=== PATIENT | female | born 1975 | race Caucasian/White ===

== ENCOUNTER 2019-07-22 09:12 | Day surgery (SDC) | payer OTHER ==
[2019-07-20 16:54] LABS: Urine Appearance CLEAR; Urine Bilirubin NEGATIVE (NEG); Urine Blood NEGATIVE (NEG); Urine Color YELLOW; Urine Glucose NEGATIVE (NEG); Urine Protein NEGATIVE (NEG); Urine Specific Gravity 1.015 (1.005-1.030); Urine Urobilinogen 0.2 mg/dL (0.2-1.0); Urine pH 5.5 (5.0-7.0)
[2019-07-20 16:59] LABS: Absolute Lymphocytes (CBC) 2.8 K/uL (0.7-4.9); Basophils % 0.7 % (0-1.3); Hematocrit 44.6 % (36.0-45.0); Lymphocytes % 27.8 % (15.3-44.8)
[2019-07-20 17:16] LABS: Urine Microscopic Reflex NO UMIC
[2019-07-22 09:32] LABS: Specific Gravity 1.015 (1.005-1.030)
--- OUTSIDE RECORDS SUMMARY | 2019-07-22 09:32 | XMS REPORT ---
:1975 Author Organization [facility] t Address [address] [place] [address] [address]. [address] [place] [address] Care Team Providers Name Role Phone Unavailable Unavailable Unavailable Problems Condition Condition Condition Status Onset Resolution Last Treatin g Comments Name Details Category Date Date Treatment Clinician Date Primary Primary Problem Active insomnia insomnia Depression Depression Problem Active with with anxiety anxiety Seasonal Seasonal Problem Active allergies allergies Body mass Body mass Problem Active index (BMI) index (BMI) of of 45.0-49.9 45.0-49.9 in adult in adult Acute Acute Problem Active pharyngitis pharyngitis due to due to other other specified specified organisms organisms Other viral Other viral Problem Active agents as agents as the cause the cause of diseases of diseases classified classified elsewhere elsewhere Allergies, Adverse Reactions, Alerts This patient has no known allergies or adverse reactions. Medications Ordered Filled Start Stop Current Ordering Indication Dosage Frequency Signature Comments Components Medication Medication Date Date Medication? Clinician (SIG) Name Name Nasacort Nasacort Yes Susana 1 spray in Allergy Allergy Byers each 24HR 24HR nostril Vitamin D Vitamin D Yes Susana 1 capsule Byers Escitalopra Escitalopra Yes Susana 1 tablet m Oxalate m Oxalate Byers Omeprazole Omeprazole Yes Susana 1 capsule Byers Multi For Multi For Yes Susana as Her Her Byers directed Biotin Biotin Yes Susana 1 tablet Byers Albuterol Albuterol Yes Susana 1 puff as Sulfate Sulfate Byers needed Encounters Start End Encounter Admission Attending Care Care Encounter Date/Time Date/Time Type Type Clinicians Facility Department ID 2019-05-10 2019-05-10 Outpatient Mitchell Medrano 2 [id number] 09:00:00 09:00:00 [facility] 2019-03-18 2019-03-18 Outpatient Mitchell Medrano 2 [id number] 14:40:00 14:40:00 [facility] 2018-10-14 2018-10-14 Outpatient Mitchell Medrano 2 [id number] 15:30:00 15:30:00 [facility]
[2019-07-22] MEDS ORDERED: Ringers Lactate 1,000 ML IV ONE ×3 (09:33→17:43)
--- OUTSIDE RECORDS SUMMARY | 2019-07-22 09:33 | XMS REPORT ---
:1975 Author Organization [employer] Care Team Providers Name Role Phone Brant Begum Provider Role Unavailable Allergies, Adverse Reactions, Alerts Substance Reaction Event Type N.K.D.A. Info Not Available Non Drug Allergy Problems Problem Type Condition Code Onset Dates Condition Statu s Assessment Primary insomnia F51.01 Active Assessment Depression with anxiety F41.8 Acti ve Assessment Seasonal allergies J30.2 Active Assessment Encounter for general adult medical Z00.00 Active examination without abnormal findings Assessment Pain of right heel M79.671 Active Assessment Body mass index (BMI) of 45.0-49.9 Z68.42 Active in adult Problem Seasonal allergies J30.2 Active Problem Primary insomnia F51.01 Active Problem Depression with anxiety F41.8 Acti ve Assessment Strep pharyngitis J02.0 Active Problem Other seasonal allergic rhinitis J30.2 Active Problem Body mass index (BMI) of 45.0-49.9 Z68.42 Active in adult Medications Medication Code Code Instructions Start End Status Dosage System Date Date Augmentin [facility] 88247898823 875-125 MG October 14Oct 21, Active 1 tabl et Orally every 12 2019 2019 hrs Montelukast ND 81788676056 10 MG Orally Active 1 t ablet Sodium Once a day Nasacort Allergy [facility] 62947055402 55 MCG/ACT Active 1 spray in 24HR Nasally Once a each day nostril Belsomra [facility] 80602432123 10 MG Orally October 14, Active 1 tab let at Once a day 2019 bedtime as needed Vitamin D ND 34990495732 1000 UNIT Active 1 capsul e Orally Once a day Trazodone HCl ND 45567472286 50 MG Orally September Active 1 tablet at Once a day , bedtime as 2019 needed Escitalopram ND 02244410579 10 MG Orally Active 1 tablet Oxalate Once a day Sudafed [facility] 54484389017 30 MG Orally Active 2 table ts every 6 hrs as needed Omeprazole ND 74413295238 20 MG Orally Active 1 ca psule Once a day Lexapro ND 28862502528 10 MG Orally Active 1 table t Once a day Multi For Her [facility] 95101179005 - Orally Active as di rected Zyrtec Allergy ND 31591909775 10 MG Orally Active 1 tablet Once a day Biotin ND 26476585545 10 MG Orally Active 1 table t Once a day Results No Known Results Summary Purpose [employer] Submission
--- OUTSIDE RECORDS SUMMARY | 2019-07-22 09:33 | XMS REPORT ---
:1975 Author Organization [employer] Care Team Providers Name Role Phone Aislinn Zuñiga Provider Role Unavailable Allergies, Adverse Reactions, Alerts Substance Reaction Event Type N.K.D.A. Info Not Available Non Drug Allergy Problems Problem Type Condition Code Onset Dates Condition Statu s Assessment Mild reactive airways disease, J45.909 Active unspecified whether persistent Problem Seasonal allergies J30.2 Active Problem Primary insomnia F51.01 Active Problem Depression with anxiety F41.8 Acti ve Assessment Cough R05 Active Problem Other seasonal allergic rhinitis J30.2 Active Problem Body mass index (BMI) of 45.0-49.9 Z68.42 Active in adult Medications Medication Code Code Instructions Start End Status Dosage System Date Date Sudafed [facility] 72025687553 30 MG Orally Active 2 table ts every 6 hrs as needed Escitalopram ND 73743030555 10 MG Orally Active 1 tablet Oxalate Once a day Biotin ND 57126228014 10 MG Orally Active 1 table t Once a day Belsomra ND 40463866017 10 MG Orally October 14, Active 1 tab let Once a day 2019 at bedtime as needed Cefdinir ND 55794313069 300 MG Orally Active cap Twice a day Omeprazole ND 49896189440 20 MG Orally Active 1 ca psule Once a day Lexapro ND 52668963385 10 MG Orally Active 1 table t Once a day Vitamin D ND 79426965032 1000 UNIT Active 1 capsul e Orally Once a day Multi For Her ND 91677717432 - Orally Active as directed Zyrtec Allergy [facility] 35434619061 10 MG Orally Active 1 tablet Once a day Albuterol [facility] [address]-23 108 (90 Base) Active 1 puff as Sulfate MCG/ACT needed Inhalation every [address] [facility] [address]-49 200 MG Orally Active 1 capsule Three times a day Montelukast ND 95754071822 10 MG Orally Active 1 t ablet Sodium Once a day Nasacort [facility] 22338009977 55 MCG/ACT Active 1 spray in Allergy 24HR Nasally Once a each day nostril Results No Known Results Summary Purpose [employer]ClinicalWorks Submission
[2019-07-22] MEDS ORDERED: SCOPOLAMINE HYDROBROMIDE PATCH TD ONE (09:34)
[2019-07-22] MEDS: CEFAZOLIN/SWI 2gm 2 GM/20 ML SYR ONE ×2 (10:11→11:45)
[2019-07-22] MEDS ORDERED: LIDOCAINE 1% MPF 5 ML VIAL ONE (10:28)
[2019-07-22] MEDS ORDERED: MIDAZOLAM HCL 2 MG/2 ML INJ ONE (10:28)
[2019-07-22] MEDS ORDERED: FENTANYL CITR 250 MCG/5 ML ONE (10:28)
[2019-07-22] MEDS ORDERED: ROCURONIUM 50 MG/5 ML VIAL IV ONE (10:28)
[2019-07-22] MEDS ORDERED: propofoL 200 MG/20 ML VIAL IV ONE (10:28)
[2019-07-22] MEDS ORDERED: dexAMETHasone 10 MG/ML VIAL ONE (10:30)
[2019-07-22] MEDS ORDERED: ONDANSETRON 4 MG/2 ML VIAL ONE (10:30)
[2019-07-22] MEDS: CEFAZOLIN/SWI 1gm 1 GM/10 ML SYR ONE ×3 (11:45→17:43)
[2019-07-22] MEDS: BUPIVACAINE 0.25% PF 10 ML VIAL ONE ×2 (12:34→16:30)
[2019-07-22] MEDS ORDERED: GLYCOPYRROLATE 0.2 MG/ML SYR ONE (12:54)
[2019-07-22] MEDS ORDERED: NS 0.9% VIAL 10 ML ONE ×2 (13:02→14:43)
[2019-07-22] MEDS ORDERED: VECURONIUM 10 MG/VIAL IV ONE (13:03)
[2019-07-22] MEDS: Ringers Lactate 1,000 ML IV ONE ×2 (13:06→13:42)
[2019-07-22] MEDS ORDERED: KETOROLAC 30 MG/ML INJ ONE (13:13)
[2019-07-22] MEDS ORDERED: MEPERIDINE HCL 25 MG/0.5 ML ONE (14:42)
[2019-07-22] MEDS ORDERED: CEFAZOLIN SODIUM 1 GM/VIAL ONE (15:31)
[2019-07-22] MEDS ORDERED: NS 0.9% VIAL 20 ML ONE (15:31)
[2019-07-22] MEDS ORDERED: BUPIVACAINE 0.25% PF 10 ML VIAL ONE (16:38)
[2019-07-22] MEDS ORDERED: NEOSTIGMINE 1 MG/ML -5 ML ONE (16:42)
[2019-07-22] MEDS: MEPERIDINE HCL 25 MG/0.5 ML ONE ×2 (17:50→17:56)
[2019-07-22] MEDS ORDERED: PROMETHAZINE INJ 25 MG/ML AMP ONE (17:54)
[2019-07-22] MEDS ORDERED: HYDROCODONE/APAP 5/325 MG TAB ONE (18:23)
[2019-07-22] MEDS ORDERED: MEPERIDINE HCL 50 MG/ML ONE (18:56)
[2019-07-22 20:25] VITALS: BP 141/83; TEMP 98.3; O2SAT 94
--- NOTE | 2019-07-26 08:45 | OP ---
Date of Procedure: 07/22/2019 Surgeon: Marivel Gomez MD Community Development Manager: first her[employer] Segovia. Preoperative Diagnosis: Abnormal uterine bleeding (N-L/M), leiomyomata and endometrial atypia. Postoperative Diagnosis: Abnormal uterine bleeding (N-L/M), leiomyomata and endometrial atypia. Procedures Performed: Total laparoscopic hysterectomy, bilateral salpingo-oophorectomy, pelvic washi ngs, and cystoscopy, mini-laparotomy for retrieval of specimen as it would not fit through the vagina . Specimens: Uterus, bilateral tubes and ovaries, and pelvic washings. Complications: No complications. Drains: No drains. Condition: The patient's condition is stable. Findings: Uterus with large leiomyomata especially the largest one in the right posterior wall and t he subserosal myoma about 5-6 cm at the left coronal end arising off the fundus. Other myomata prese nt as well and calcified. Ureters were unremarkable and cystoscopy has showed strong jets of urine from both ureteri c orifices and bladder visualization was done completely and negative for any tumors. 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 Ovaries were unremarkable, the left ovary had a physiological appearing cyst . Tubes unremarkable as well. Omentum unremarkable. Upper abdominal surfaces smooth. Brief History And Physical: The patient is a 44-year-old with heavy bleeding. She was evaluated wit h transvaginal ultrasound. Uterine lining appeared to be thickened. An office hysteroscopy was perf ormed and multiple polyps were seen of which adequate sampling was performed and atypia was found in the polyp. As COVID-19 crisis had risen at the same time as the patient was scheduled for surgery, p ut in Mirena IUD in for a month and this was removed just yesterday before the patient came to the OR today and surgery being done for endometrial atypia. Description Of Procedure: After informed consent was verified, she was taken back to OR, placed in s upine fashion on the operating table. General anesthesia was given, placed in a dorsal lithotomy pos ition. Ancef 3 g was given preop. SCDs started. Time-out done. Abdomen, vulva, vagina, and perine um were prepped and draped in a sterile fashion. A Zarate was placed to drain the bladder, a large VC are and the uterus for manipulation. Once this was draped, a 1 cm infraumbilical incision made with a scalpel using the open laparoscopy technique. Fascia was incised, tagged on both sides with 0 Vicr yl sutures. Peritoneum entered sharply. S-retractors were placed, insufflated, site of entry was ch ecked, unremarkable. Upper abdominal surfaces as described above in the findings. A 30-degree scope was introduced and the uterus and tubes and ovaries were visualized. The uterus was large with myom german as described on the findings section, but it was very possible laparoscopic hysterectomy to proce ed with. Local Marcaine 0.25% was placed at the umbilicus before the incision was made and similarly at all of the 3 incisions and at the fascia level . So, 10 mm suprapubic, two 5 mm left a nd right lower quadrant ports all were placed under direct vision. Then, after pelvic washings were done, portions of the ureters were unremarkable after inspection, then went ahead and took down the l eft tube from the distal and towards the coronal end, removed and retrieved it, then the round ligame nt was taken down, utero-ovarian ligament was taken down, anterior broad ligament was opened up and b ladder flap raised all the way to the opposite side of round ligament, then the utero-ovarian ligamen t was taken down posteriorly, opened the peritoneum all the way to the uterosacrals. Very difficult visualization, bowel retraction had to be done as well before this. Broad ligament was taken down un jaja direct visualization. Vessels skeletonized and the bladder dissected inferiorly until the cup wa s visualized. The cup was very difficult to discern as the vaginal wall appeared to be thick. Went on to the right side, this was a difficult side taking down the tube first, then utero-ovarian ligame nt, round ligament, broad ligament opened up anteriorly and connected posteriorly. The posterior fib roid had to be manipulated anteriorly and rotated in order for me to get down with the peritoneum all the way down to the level of the vessels. The broad ligament was skeletonized to expose the vessels that were large. The bladder was cleaned down inferiorly very well without any problems. Then, the vessels were taken down on the right side with the help of the bipolar and basket tip and then the L igaSure. The uterine artery on the right side was bleeding after cauterization most likely from the vessel seal break, so 2 clips were placed. There was a third clip that was placed that came off late r, but this was not the well-placed clip. The two well positioned clips stayed intact and placed wit h good healing with excellent hemostasis . Then, the cardinal ligaments were taken down on the opposite side, similar dissection was performed t aking down the vessels. A clip was placed on the side as well, just a precaution since the vessels p robably were larger than what the 5 mm LigaSure could get adequately. So, then the uterine vessels w ere taken down, the cardinal ligament was taken down. Colpotomy was performed on the anterior vagina l wall, it was difficult for me to discern the cup, so a small part of the cervix was left in place a nteriorly, right side the colpotomy was taken down without any problems all the way to the uterosacra l then this was brought around from the left side and the specimen detached. The remaining part of t he cervix that was attached to the vagina was taken down with the help of the monopolar hook blade rafael bailey on in total. This was taken out as a separate specimen. Once the uterus was detached, I anticipated that the righ t-sided fibroid was removed with the help of the LigaSure without breaking into the uterine wall itse lf and this was completely subserosal. Once this was removed and attached with the 0 Vicryl loop jus t to hold it as a marker, I attempted to put this in a vaginal bag that was introduced and I tried to pull the rim out and tried to scoop the uterus out, but this was too big and was very calcified, wit hout morcellation this would not come out since there is atypia and this was not safe despite the spe cimen being contained, I decided to push this back inside the abdominal cavity after cutting the rim out once the bag was tied with silk sutures. This was pushed back and thorough irrigation and suctio n of the vagina was done, both ovaries were removed, and retrieved through the vagina as well as the other fibroid specimen. Then, the uterine specimen was left intact in a closed bag in the right lowe r quadrant. Then, the closure of the vaginal cuff was finished with the help of the 2-0 V-Loc in 2 l real from right to the left and left to the right and 2 extra suture passes were placed in order for it to not leave unwind. Once this was all done and everything was hemostatic, thorough irrigation a nd suction was performed at the level of the vaginal cuff and the pedicles were all hemostatic. No e vidence of electrical, mechanical, or thermal injury to the ureters. All the trocars were removed, g as was desufflated. Then mini lap was performed at the suprapubic site. The fascia at the umbilicus was closed with the help of the tagged sutures tied to each other. Then at the suprapubic side, an 8 cm incision was made on the skin, subcutaneous tissues, and fascia. The recti were . The peritoneum was entered through the port that was placed and the incision enlarged. Then, the specim en bag was pulled up and it was retrieved through this incision. Once this was done, the muscles wer e brought together with the help of simple 0 Vicryl sutures x2 in a horizontal mattress fashion, then pulled the skin, closed the fascia together with the help of a continuous running 0 Vicryl one from each end, then tied in the center. Then thorough irrigation of the subcutaneous tissues was done and closure with 3-0 chromic and then skin closed with the help of 4-0 Vicryl in a continuous running goodrich bcuticular fashion and interrupted sutures in all other incisions as well. A TAP block was placed ri [facility] underneath the internal oblique and the transversus. 20 mL of 0.25% Marcaine was placed for effe ctive pain control postoperatively before the closure of the skin. All the other skin sites were als o injected with Marcaine. The patient tolerated the procedure well. Then, I went down, r emoved the Zarate. Vaginal sponge was removed and cystoscopy was performed with 17-Lithuanian sheath, 30- degree lens normal saline. Both ureteric orifices were well visualized with strong jets from them, s quamous metaplasia on the trigone, but rest of the bladder unremarkable. Bladder was drained. Vagin a was cleaned up. The scar was seen. There were a couple of spots where the cauterized vaginal epit helium was visualized, but the rest of the closure was excellent. After the scope was removed, instr ument, needle, and sponge counts were correct at the end of the case, tolerated the procedure well. EBL was minimal. The blood that was evacuated was mostly the back bleeding as the specimen was remov ed and it was being manipulated. She will be discharged home today, she has pain prescriptions at [facility]. She got another g of Ancef because of all the manipulation of the uterus. I will send her home with Levaquin 500 mg daily for 7 days. KRISTY/ALHAJI Voice ID: [id number] Report ID: [id number]
== END 2019-07-22 20:15 | disposition home or self-care (01) ==
LOC: OR 09:12
PROVIDERS: ATTEND Obstetrics & Gynecology
PROC: 0UT24ZZ Resection of Bilateral Ovaries, Percutaneous Endoscopic Approach (ICD-10-PCS; 2019-07-22)
PROC: 0UT74ZZ Resection of Bilateral Fallopian Tubes, Percutaneous Endoscopic Approach (ICD-10-PCS; 2019-07-22)
PROC: 0UT94ZZ Resection of Uterus, Percutaneous Endoscopic Approach (ICD-10-PCS; principal; 2019-07-22 11:30)
DX: N92.1 Excessive and frequent menstruation with irregular cycle (principal); D25.1 Intramural leiomyoma of uterus; N85.02 Endometrial intraepithelial neoplasia [EIN]; N83.8 Other noninflammatory disorders of ovary, fallopian tube and broad ligament; E66.01 Morbid (severe) obesity due to excess calories; Z68.42 Body mass index [BMI] 45.0-49.9, adult; F41.9 Anxiety disorder, unspecified; Z80.49 Family history of malignant neoplasm of other genital organs; Z83.3 Family history of diabetes mellitus; Z82.49 Family history of ischemic heart disease and other diseases of the circulatory system
CPT/HCPCS: 85025; 36415; 86900; 88108; 86850; 81025; 86901; 88305; 88307; 81003; 58573; J2704; J2550; J2250; J3010; J1100; J2175 ×3; J2710; J0690 ×3; J7120 ×4; J2405